=== PATIENT | male | born 1940 | race African-American/Black ===

== ENCOUNTER 2019-05-16 11:47 | Inpatient (IN) ==
[2019-05-16] MEDS ORDERED: SALINE LOCK IV FLUID XX ONE (12:35)
[2019-05-16 14:32] LABS: BASO# 0.01 X1000 (0.0-0.2); BASO% 0.1 % (0.0-0.8); EOS# 0.02 X1000 (0.0-0.7); EOS% 0.2 % (0.0-10.0); HEMATOCRIT 30.7 % (42.0-52.0); IMM GRAN# 0.03 X1000 (0.0-0.04); IMM GRAN% 0.3 % (0.0-0.5); LYMPH% 11.5 % (20.5-51.1); MCH 28.3 PG (27-31); MCHC 35.8 g/dL (33-37); MCV 78.9 FL (81-99); MONO% 2.6 % (1.7-9.3); MPV 11.6 FL (7.4-10.4); NEUT# 9.67 X1000 (1.4-6.5); NEUT% 85.3 % (42.2-75.2); PLT 159 X1000 (130-400); RBC 3.89 XMIL (4.7-6.1); RDW 15.7 % (11.5-14.5); WBC 11.33 X1000 (4.8-10.8)
[2019-05-16 14:50] LABS: LYMPHS 7 % (21-51); MONO 1 % (1-9); SEGS 92 % (42-75)
[2019-05-16 15:14] LABS: CALCIUM 7.7 mg/dL (8.8-10.2); CREATININE 1.9 mg/dL (0.7-1.2); POTASSIUM 4.5 mmol/L (3.5-5.1)
[2019-05-16] MEDS ORDERED: LASIX IV ONE (18:23)
[2019-05-16] MEDS ORDERED: ZOSYN 2.275 GM in NS 50 ML IV SCH (18:30)
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
[2019-05-16] MEDS: LOVENOX SUBQ SCH (22:30)
[2019-05-17] MEDS: ZOSYN 2.25 GM in NS 50 ML IV SCH ×4 (00:47→17:33)
[2019-05-17 05:20] LABS: BASO# 0.03 X1000 (0.0-0.2); BASO% 0.4 % (0.0-0.8); EOS# 0.08 X1000 (0.0-0.7); EOS% 1.1 % (0.0-10.0); HEMATOCRIT 27.5 % (42.0-52.0); HEMOGLOBIN 9.6 g/dL (14.0-18.0); IMM GRAN# 0.03 X1000 (0.0-0.04); IMM GRAN% 0.4 % (0.0-0.5); LYMPH# 1.24 X1000 (1.2-3.4); LYMPH% 16.3 % (20.5-51.1); MCH 27.4 PG (27-31); MCHC 34.9 g/dL (33-37); MCV 78.6 FL (81-99); MONO# 0.35 X1000 (0.11-0.59); MONO% 4.6 % (1.7-9.3); NEUT# 5.86 X1000 (1.4-6.5); NEUT% 77.2 % (42.2-75.2); PLT 138 X1000 (130-400); RDW 15.7 % (11.5-14.5); WBC 7.59 X1000 (4.8-10.8)
[2019-05-17 05:59] LABS: ALB/GLOB RATIO 0.8; ALBUMIN 1.4 g/dL (3.5-5.0); CALCIUM 7.3 mg/dL (8.8-10.2); POTASSIUM 4.4 mmol/L (3.5-5.1); TOTAL BILIRUBIN 0.26 mg/dL (0.20-1.00); TOTAL PROTEIN 3.2 g/dL (6.3-8.3)
--- NOTE | 2019-05-17 08:44 | Diag Imaging Result Doc PS360 ---
EXAM: US ABDOMEN-COMPLETE INDICATION: nausea COMPARISON: None. FINDINGS: There are multiple shadowing stones layering in the gallbladder lumen. No gallbladder wall thickening or pericholecystic fluid is identified. The common bile duct is normal in diameter. Sonographic Scott's sign was reported to be negative. The liver is grossly unremarkable. Portal venous flow is hepatopetal. Part of the pancreas is obscured. The visualized portions are unremarkable. There is aortic atherosclerotic calcification. It is unremarkable, otherwise. The spleen is unremarkable. The kidneys appear somewhat echogenic, which is a nonspecific indicator of medical renal disease. There is a 6.8 cm simple cyst at the lower pole of the right kidney. IMPRESSION: 1.Cholelithiasis. 2.Somewhat echogenic kidneys, which is a nonspecific indicator of medical renal disease. Electronically signed by Claude Naik 05/17/2019 8:41 AM
[2019-05-17] MEDS ORDERED: ALBUMIN 25% IV SCH (09:00)
[2019-05-17] MEDS: ZYLOPRIM PO SCH (10:09)
[2019-05-17] MEDS: LASIX IV SCH (10:10)
[2019-05-17] MEDS: PRILOSEC PO SCH (10:10)
[2019-05-17] MEDS: TOPROL XL PO SCH (10:10)
[2019-05-17] MEDS: PATIENT'S OWN MED PO SCH (10:12)
[2019-05-17 11:17] LABS: PROTEIN CREAT RATIO 0.2; UR CREAT RANDOM 52.9 mg/dL (14-26); UR PROT RANDOM 8.4 mg/dL
[2019-05-17] MEDS: LOVENOX SUBQ SCH (21:19)
--- NOTE | 2019-05-17 21:40 | PROGRESS NOTE ---
DATE: 05/17/2019 SUBJECTIVE: The patient is very feeble. He had a significant generalized anasarca, and protein levels were very low, and Garcia was placed. Excellent diuresis. No other complaints. PHYSICAL EXAMINATION: Vital signs: Temperature is 97.9 degrees, pulse is 63, blood pressure 126/68. Ins and outs negative so far, -3 L. HEENT Exam: Slightly pale, jaundiced. Chest: Clear. Heart: Sounds are regular. Abdomen: Belly is soft, nontender. Good bowel sounds. Genitourinary: Garcia placed. Scrotal edema improving as well as pedal edema. INVESTIGATIONS: CBC: White cell count 7.5, hematocrit 27.5, platelets 138,000. Sodium 146, potassium 4.4, BUN 22, creatinine 2.0, glucose 127, AST, ALT, alkaline phosphatase were high, proBNP 512, protein 3.2, albumin 1.4. Urine protein creatinine ratio 0.2. ASSESSMENT AND PLAN: 1. Penile edema, scrotal edema with trauma and cellulitis on IV Zosyn. White cell count is coming down. We will decrease the dose of Zosyn. 2. Generalized anasarca due to hypoproteinemia, significant reduction of protein levels, etiology to be determined. Continue on IV albumin. 3. Deep venous thrombosis prophylaxis with Lovenox. 4. Hypertension on metoprolol. Out of the bed with physical therapy. 5. Type 2 diabetes. We will hold the metformin and blood sugars running a little bit high. We will use the insulin coverage. The patient is refusing to use the insulin. 6. Gout on allopurinol. We will slowly reconcile home medicines. 7. Elevated liver function tests. We will get the ultrasound of the abdomen, and we will follow up on. Out of the bed with physical therapy. LEVEL OF DOCUMENTATION: 25 minutes. cc: Qamar Simon MD
[2019-05-18] MEDS: ZOSYN 2.25 GM in NS 50 ML IV SCH ×5 (00:51→18:43)
[2019-05-18 05:34] LABS: BASO# 0.02 X1000 (0.0-0.2); BASO% 0.4 % (0.0-0.8); EOS# 0.08 X1000 (0.0-0.7); EOS% 1.6 % (0.0-10.0); HEMATOCRIT 21.6 % (42.0-52.0); HEMOGLOBIN 7.5 g/dL (14.0-18.0); LYMPH# 0.92 X1000 (1.2-3.4); LYMPH% 18.7 % (20.5-51.1); MCH 27.3 PG (27-31); MCHC 34.7 g/dL (33-37); MCV 78.5 FL (81-99); MONO# 0.23 X1000 (0.11-0.59); MONO% 4.7 % (1.7-9.3); MPV 10.4 FL (7.4-10.4); NEUT# 3.67 X1000 (1.4-6.5); NEUT% 74.6 % (42.2-75.2); PLT 119 X1000 (130-400); RBC 2.75 XMIL (4.7-6.1); RDW 15.1 % (11.5-14.5); WBC 4.92 X1000 (4.8-10.8)
[2019-05-18 05:48] LABS: CALCIUM 7.2 mg/dL (8.8-10.2); CREATININE 1.9 mg/dL (0.7-1.2); POTASSIUM 3.6 mmol/L (3.5-5.1)
[2019-05-18 05:53] LABS: HEMOGLOBIN A1C 5.1 % (4.8-6.0)
[2019-05-18] MEDS ORDERED: NS 500 ML IV ONE (07:24)
[2019-05-18] MEDS: TOPROL XL PO SCH (08:21)
[2019-05-18] MEDS: PRILOSEC PO SCH (08:21)
[2019-05-18] MEDS: ZYLOPRIM PO SCH (08:21)
[2019-05-18] MEDS: PATIENT'S OWN MED PO SCH (08:27)
[2019-05-18] MEDS: LASIX IV SCH (12:46)
[2019-05-18] MEDS ORDERED: LASIX IV ONE (16:00)
--- NOTE | 2019-05-18 20:30 | PROGRESS NOTE ---
DATE: 05/18/2019 SUBJECTIVE: The patient has significant hypoproteinemia. Urine dipstick did not show any significant proteinuria. He has some right upper quadrant pain. This morning, the patient has significant declining of hematocrit, 21.6. Creatinine 1.9. Ultrasound findings discussed with the patient for elevated liver function tests. He has Billroth II anastomosis. He had heme- positive stools. PHYSICAL EXAMINATION: Temperature is 98 degrees, pulse 70, blood pressure is stable.HEENT: Pale looking. Feeble. Chest: Clear. Heart sounds are regular. Belly is soft, slightly tender. No signs of Scott sign. Edema is decreasing. LABORATORY AND DIAGNOSTIC DATA: White cell count 4.9, hematocrit 21.6, platelets 119,000. Sodium 146, potassium 3.6, BUN 18, creatinine 1.9, glucose 187, albumin 1.4. Elevated LFTs. Abdominal ultrasound: Positive for cholelithiasis, echogenic kidneys, 6.8 cm cyst in the lower pole of the kidney. ASSESSMENT AND PLAN: 1. Generalized anasarca due to hypoproteinemia. Etiology to be determined. No significant proteinuria noted. He was given albumin with Lasix. Significant improvement of edema. 2. Anemia. Heme-positive stools. Transfuse two units of packed RBCs. Possible GI evaluation. Consult with Dr. Bower. 3. Deep vein thrombosis prophylaxis with Lovenox. 4. Gout. On Zyloprim. 5. Type 2 diabetes. Sliding scale with insulin coverage. The patient could not take metformin due to elevated creatinine. 6. Trauma to the foreskin with phimosis. Cellulitis of the scrotum is improving. Currently on IV Zosyn. Decreased white cell count. Repeat the labs in the morning, along with the SPEP. Discussed the plan of care with the family. 7. Elevated liver function test, positive gallstones. Currently, asymptomatic on IV antibiotics. We will continue to monitor. LEVEL OF DOCUMENTATION: 25 minutes. cc: Qamar Simon MD
[2019-05-18] MEDS: HUMULIN R SUBQ SCH (21:22)
[2019-05-18] MEDS: LOVENOX SUBQ SCH (21:22)
[2019-05-19] MEDS: ZOSYN 2.25 GM in NS 50 ML IV SCH ×3 (01:06→16:37)
[2019-05-19 05:35] LABS: BASO# 0.03 X1000 (0.0-0.2); BASO% 0.4 % (0.0-0.8); EOS# 0.08 X1000 (0.0-0.7); EOS% 1.1 % (0.0-10.0); HEMATOCRIT 33.3 % (42.0-52.0); HEMOGLOBIN 11.5 g/dL (14.0-18.0); IMM GRAN# 0.02 X1000 (0.0-0.04); IMM GRAN% 0.3 % (0.0-0.5); LYMPH# 1.17 X1000 (1.2-3.4); LYMPH% 15.9 % (20.5-51.1); MCH 27.5 PG (27-31); MCHC 34.5 g/dL (33-37); MCV 79.7 FL (81-99); MONO# 0.38 X1000 (0.11-0.59); MONO% 5.2 % (1.7-9.3); MPV 10.8 FL (7.4-10.4); NEUT# 5.67 X1000 (1.4-6.5); NEUT% 77.1 % (42.2-75.2); PLT 131 X1000 (130-400); RBC 4.18 XMIL (4.7-6.1); RDW 16.3 % (11.5-14.5); WBC 7.35 X1000 (4.8-10.8)
[2019-05-19 05:44] LABS: CALCIUM 7.2 mg/dL (8.8-10.2); CREATININE 1.8 mg/dL (0.7-1.2); POTASSIUM 3.4 mmol/L (3.5-5.1)
[2019-05-19] MEDS: HUMULIN R SUBQ SCH ×4 (06:04→20:12)
[2019-05-19] MEDS ORDERED: KLOR-CON PO ONE (07:23)
[2019-05-19] MEDS: LASIX IV SCH (08:16)
[2019-05-19] MEDS: PRILOSEC PO SCH (08:16)
[2019-05-19] MEDS: ZYLOPRIM PO SCH (08:16)
[2019-05-19] MEDS: TOPROL XL PO SCH (08:16)
[2019-05-19] MEDS: PATIENT'S OWN MED PO SCH (10:27)
[2019-05-19] MEDS ORDERED: DIPRIVAN 1% ONE (11:55)
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
[2019-05-19] MEDS: LOVENOX SUBQ SCH (20:20)
--- NOTE | 2019-05-19 20:49 | PROGRESS NOTE ---
DATE: 05/19/2019 SUBJECTIVE: The patient is lot better after 2 units of packed RBCs. He has been scheduled for EGD by Dr. Junior. He had heme-positive stools. He has a generalized anasarca due to hypoproteinemia. After blood transfusion, he is getting better. He had excellent diuresis. REVIEW OF SYSTEMS: None reported. Denies of any abdominal pain. OBJECTIVE: Vital signs: Temperature is 98 degrees, pulse is 75. Vitals are stable. HEENT: No pallor. Chest: Clear. Heart: Sounds are regular. Abdomen: Belly is soft. No signs of peritonitis. Tender in the right upper quadrant. Decreased peripheral edema. Penile edema also improved as well as a hydrocele. INVESTIGATIONS: CBC: White cell count 7.3, hematocrit 33, platelets 131,000. Sodium 142, potassium 3.4, chloride 110, BUN 15, creatinine 1.8, glucose 200, SPEP, total protein is 3.3, albumin 1.48. No monoclonal band identified. ASSESSMENT AND PLAN: 1. Anemia, heme-positive stools status post 2 units of packed red blood cells. Hematocrit 33. Follow up on esophagogastroduodenoscopy. 2. Phimosis with localized infection, getting better. Discontinue Garcia. 3. Baseline creatinine 1.1, now 1.8. Ultrasound: No hydronephrosis except chronic medical renal disease. 4. Hypoproteinemia, significant causing the generalized anasarca, improving after albumin and blood transfusion. Excellent diuresis. SPEP was negative for multiple myeloma. 5. Gallstones. Currently asymptomatic. 6. Deep venous thrombosis prophylaxis with Lovenox. 7. Gout on Zyloprim. 8. Hypertension on metoprolol. 9. Acid reflux disease on Prilosec. 10. Cellulitis of the scrotum and is getting better on IV antibiotics. 11. Diabetes on sliding scale with insulin coverage. Hold on metformin due to creatinine 1.8. Plan of care is out of the bed with physical therapy, and we will repeat labs in the morning. LEVEL OF DOCUMENTATION: 25 minutes. cc: Qamar Simon MD MTDD
[2019-05-20] MEDS: ZOSYN 2.25 GM in NS 50 ML IV SCH ×3 (01:42→18:21)
[2019-05-20 05:56] LABS: BASO# 0.02 X1000 (0.0-0.2); BASO% 0.3 % (0.0-0.8); EOS# 0.06 X1000 (0.0-0.7); EOS% 0.9 % (0.0-10.0); HEMATOCRIT 31.9 % (42.0-52.0); HEMOGLOBIN 10.8 g/dL (14.0-18.0); IMM GRAN# 0.02 X1000 (0.0-0.04); IMM GRAN% 0.3 % (0.0-0.5); LYMPH# 1.29 X1000 (1.2-3.4); LYMPH% 20.3 % (20.5-51.1); MCH 27.5 PG (27-31); MCHC 33.9 g/dL (33-37); MCV 81.2 FL (81-99); MONO# 0.42 X1000 (0.11-0.59); MONO% 6.6 % (1.7-9.3); MPV 10.7 FL (7.4-10.4); NEUT# 4.54 X1000 (1.4-6.5); NEUT% 71.6 % (42.2-75.2); PLT 135 X1000 (130-400); RBC 3.93 XMIL (4.7-6.1); RDW 16.7 % (11.5-14.5); WBC 6.35 X1000 (4.8-10.8)
[2019-05-20] MEDS: HUMULIN R SUBQ SCH ×4 (06:09→20:51)
[2019-05-20 07:20] LABS: CALCIUM 7.5 mg/dL (8.8-10.2); CREATININE 1.6 mg/dL (0.7-1.2); POTASSIUM 3.8 mmol/L (3.5-5.1)
[2019-05-20] MEDS: TOPROL XL PO SCH (09:43)
[2019-05-20] MEDS: ZYLOPRIM PO SCH (09:43)
[2019-05-20] MEDS: PRILOSEC PO SCH (09:43)
[2019-05-20] MEDS: PATIENT'S OWN MED PO SCH (09:44)
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
[2019-05-20 20:46] LABS: UNBOUND IRON 19 ug/dL (112-346)
[2019-05-20] MEDS: ICAR-C PO SCH (20:50)
[2019-05-20] MEDS: LOVENOX SUBQ SCH (20:50)
[2019-05-20 20:55] LABS: TIBC 95 ug/dL; TOTAL IRON 76 ug/dL (53-167)
[2019-05-20 20:59] LABS: IRON SATURATION 80 %
[2019-05-21] MEDS: ZOSYN 2.25 GM in NS 50 ML IV SCH ×3 (01:31→17:02)
[2019-05-21] MEDS: HUMULIN R SUBQ SCH ×4 (06:53→20:54)
[2019-05-21] MEDS: PRILOSEC PO SCH (08:02)
[2019-05-21] MEDS: TOPROL XL PO SCH (08:02)
[2019-05-21] MEDS: ZYLOPRIM PO SCH (08:02)
[2019-05-21] MEDS: CENTRUM SILVER PO SCH (08:02)
[2019-05-21] MEDS: ICAR-C PO SCH (08:02)
[2019-05-21] MEDS: PATIENT'S OWN MED PO SCH (10:16)
--- NOTE | 2019-05-21 10:35 | PROGRESS NOTE ---
DATE: 05/21/2019 OBJECTIVE: Vital Signs: Stable with temperature 98.4 degrees, heart rate 73, respirations 16, blood pressure 131/70, O2 saturation on room air 100%. ASSESSMENT: The patient continues to improve. He has been ambulatory and is eating fairly well. PLAN: Continue current treatment. Consider discharge home tomorrow. cc: MD Qamar Cortes MD
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
[2019-05-21] MEDS: LOVENOX SUBQ SCH (20:54)
[2019-05-22] MEDS: ZOSYN 2.25 GM in NS 50 ML IV SCH ×3 (01:25→16:47)
[2019-05-22] MEDS: HUMULIN R SUBQ SCH ×4 (06:44→20:03)
[2019-05-22 09:24] LABS: HEPATITIS PROFILE ACUTE SEE COMMENTS
[2019-05-22 09:24] LABS: ALBUMIN 2.1 g/dL (3.5-5.0); CALCIUM 7.9 mg/dL (8.8-10.2); CREATININE 1.6 mg/dL (0.7-1.2); POTASSIUM 4.5 mmol/L (3.5-5.1); TOTAL BILIRUBIN 0.4 mg/dL (0.20-1.00); TOTAL PROTEIN 4.1 g/dL (6.3-8.3)
[2019-05-22] MEDS: PRILOSEC PO SCH (09:26)
[2019-05-22] MEDS: TOPROL XL PO SCH (09:26)
[2019-05-22] MEDS: CENTRUM SILVER PO SCH (09:26)
[2019-05-22] MEDS: ZYLOPRIM PO SCH (09:26)
[2019-05-22] MEDS: PATIENT'S OWN MED PO SCH (09:27)
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
[2019-05-22] MEDS ORDERED: ICAR-C PLUS PO SCH (11:30)
--- NOTE | 2019-05-22 21:17 | PROGRESS NOTE ---
DATE: 05/22/2019 SUBJECTIVE: The patient is better. Penile edema is getting better and Dr. Bower reports reviewed. PHYSICAL EXAMINATION: Vital signs: Temperature is 98 degrees, pulse is 82, blood pressure is stable. HEENT: Within normal limits. Neck: Supple. Chest: Clear. Heart: Sounds are regular. Abdomen: Belly is soft, nontender. Neurologic: No obvious deficits. INVESTIGATIONS: Sodium 145, potassium 4.5, chloride 112, BUN 11, creatinine 1.6, glucose 315, protein 4.1, albumin is 2.1. Hepatitis panel was negative. CBC: White cell count 6.3, hematocrit 32, platelets 135,000. Stool for occult blood positive. ASSESSMENT AND PLAN: 1. Elevated liver function tests. Continue to monitor as an outpatient. 2. Gallstones asymptomatic. 3. Pending labs as per Dr. Bower and discontinue IV antibiotics. 4. Chronic kidney disease stable. 5. Hypoproteinemia, etiology to be determined. Urine is negative for nephrosis and we will continue to monitor as an outpatient and follow up on CBC SMA 7 which is ordered and we will discharge in the morning with home health care and follow up in my office. LEVEL OF DOCUMENTATION: [25] cc: Qamar Simon MD MTDD
[2019-05-22] MEDS: LOVENOX SUBQ SCH (21:39)
[2019-05-23] MEDS: HUMULIN R SUBQ SCH (06:18)
[2019-05-23 07:40] VITALS: BP 146/67
[2019-05-23] MEDS ORDERED: PREVNAR 13 IM ONE (07:42)
[2019-05-23] MEDS: CENTRUM SILVER PO SCH (08:41)
[2019-05-23] MEDS: TOPROL XL PO SCH (08:41)
[2019-05-23] MEDS: ZYLOPRIM PO SCH (08:41)
[2019-05-23] MEDS: PRILOSEC PO SCH (08:41)
[2019-05-23] MEDS ORDERED: FLU VACCINE IM ONE (08:44)
[2019-05-23] MEDS ORDERED: NS 1,000 ML ONE (11:10)
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
[2019-05-23 22:07] LABS: TISSUE TRANSGLUTAMINASE IGA SEE COMMENTS
== END 2019-05-23 10:10 | disposition home or self-care (01) | DRG 728 ==
LOC: DIRADM → OBSVTOIN 11:47 → EDIPHOLD 12:16 → 1N 14:49
PROVIDERS: ADMIT Internal Medicine; ATTEND Internal Medicine

== ENCOUNTER 2019-10-26 09:56 | Inpatient (IN) ==
[2019-10-26] MEDS ORDERED: NEXIUM IV SCH (11:30)
[2019-10-26] MEDS ORDERED: APRESOLINE IV PRN (11:30)
[2019-10-26] MEDS ORDERED: SODIUM CHLORIDE 0.9% INJ SCH (11:30)
[2019-10-26] MEDS ORDERED: LASIX IV SCH (12:00)
[2019-10-26] MEDS: LOVENOX SUBQ SCH (12:48)
[2019-10-26] MEDS: LASIX IV SCH (12:48)
[2019-10-26 12:49] LABS: CALCIUM 7.4 mg/dL (8.8-10.2); CREATININE 1.4 mg/dL (0.7-1.2); POTASSIUM 3.9 mmol/L (3.5-5.1)
[2019-10-26 12:49] LABS: URINE SOURCE CATH
[2019-10-26] MEDS: PROTONIX IV SCH (12:49)
[2019-10-26] MEDS: SODIUM CHLORIDE 0.9% INJ SCH (12:49)
[2019-10-26 12:53] LABS: BASO# 0.01 X1000 (0.0-0.2); BASO% 0.1 % (0.0-0.8); EOS# 0.03 X1000 (0.0-0.7); EOS% 0.3 % (0.0-10.0); HEMATOCRIT 27.8 % (42.0-52.0); HEMOGLOBIN 9.4 g/dL (14.0-18.0); LYMPH# 1.13 X1000 (1.2-3.4); LYMPH% 11.7 % (20.5-51.1); MCH 27.6 PG (27-31); MCHC 33.8 g/dL (33-37); MCV 81.5 FL (81-99); MONO# 0.64 X1000 (0.11-0.59); MONO% 6.6 % (1.7-9.3); MPV 11.2 FL (7.4-10.4); NEUT# 7.87 X1000 (1.4-6.5); NEUT% 81.3 % (42.2-75.2); PLT 111 X1000 (130-400); RBC 3.41 XMIL (4.7-6.1); WBC 9.68 X1000 (4.8-10.8)
[2019-10-26 12:57] LABS: BILIRUBIN URINE NEGATIVE (NEGATIVE); BLOOD URINE NEGATIVE (NEGATIVE); COLOR YELLOW; GLUCOSE URINE 150 mg/dL (NEGATIVE); KETONE URINE NEGATIVE (NEGATIVE); LEUKOCYTES URINE NEGATIVE (NEGATIVE); NITRITE URINE NEGATIVE (NEGATIVE); PROTEIN URINE TRACE mg/dL (NEGATIVE); SP GRAVITY URINE 1.018; TURBIDITY URINE CLEAR (CLEAR); UR EPITHELIAL CELLS <10 /HPF (<10); URINE BACTERIA NEGATIVE /HPF; URINE RBC <10 /HPF (<10); URINE WBC <10 /HPF (<10); UROBILINOGEN URINE NORMAL (NORMAL)
[2019-10-26] MEDS: FLAGYL PO SCH ×2 (14:55→22:11)
[2019-10-26] MEDS: ALBUMIN 25% IV SCH (14:57)
[2019-10-26] MEDS: HUMULIN R SUBQ SCH ×2 (17:48→22:11)
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
[2019-10-27] MEDS: FLAGYL PO SCH ×5 (03:58→21:16)
[2019-10-27] MEDS: HUMULIN R SUBQ SCH ×4 (06:33→21:18)
[2019-10-27 07:18] LABS: BASO# 0.01 X1000 (0.0-0.2); BASO% 0.1 % (0.0-0.8); EOS# 0.03 X1000 (0.0-0.7); EOS% 0.4 % (0.0-10.0); HEMATOCRIT 26.7 % (42.0-52.0); HEMOGLOBIN 9.2 g/dL (14.0-18.0); IMM GRAN# 0.26 X1000 (0.0-0.04); LYMPH# 0.98 X1000 (1.2-3.4); LYMPH% 11.5 % (20.5-51.1); MCHC 34.5 g/dL (33-37); MCV 78.3 FL (81-99); MONO# 0.49 X1000 (0.11-0.59); MONO% 5.7 % (1.7-9.3); MPV 9.4 FL (7.4-10.4); NEUT# 6.78 X1000 (1.4-6.5); NEUT% 79.3 % (42.2-75.2); PLT 146 X1000 (130-400); RBC 3.41 XMIL (4.7-6.1); RDW 13.5 % (11.5-14.5); WBC 8.55 X1000 (4.8-10.8)
[2019-10-27 07:48] LABS: FREE T4 1.03 ng/dL (0.93-1.70); TSH 4.12 uIUmL (0.27-4.20)
[2019-10-27 07:52] LABS: AGAP 10; BUN 16 mg/dL (8-22); CALCIUM 7.6 mg/dL (8.8-10.2); CHLORIDE 109 mmol/L (98-107); COSMO 277; CREATININE 1.2 mg/dL (0.7-1.2); ESTIMATED GFR > 60; GLUCOSE 62 mg/dL (70-104); POTASSIUM 3.5 mmol/L (3.5-5.1); SODIUM 139 mmol/L (136-145); TCO2 20 mmol/L (25-35)
[2019-10-27] MEDS ORDERED: CALCIUM GLUCONATE 1 GM in NS 50 ML IV ONE (08:24)
[2019-10-27] MEDS ORDERED: D50W 500 ML IV SCH (08:30)
[2019-10-27] MEDS ORDERED: D50W SYRINGE IV ONE (08:39)
[2019-10-27] MEDS ORDERED: LASIX IV SCH (09:00)
[2019-10-27] MEDS: LASIX IV SCH (09:04)
[2019-10-27] MEDS: CULTURELLE PO SCH (09:05)
[2019-10-27] MEDS: ALBUMIN 25% IV SCH (11:17)
[2019-10-27] MEDS: LOVENOX SUBQ SCH (12:16)
[2019-10-27] MEDS: PROTONIX IV SCH (12:17)
[2019-10-27] MEDS: SODIUM CHLORIDE 0.9% INJ SCH (12:18)
--- NOTE | 2019-10-27 20:53 | PROGRESS NOTE ---
DATE: 10/27/2019 Patient is doing much better and he has some heating applied to body. He is feeling very cold. EXAM: Temperature is 98 degrees. Vitals are stable.HEENT: Within normal limits. Neck: Supple. Chest: Clear. Heart: Sounds are regular. Belly is soft, nontender. Decreased pedal edema. INVESTIGATIONS: CBC. White cell count 8.5, hematocrit 26, platelet 146,000. Sodium 139, potassium 3.5, BUN 16, creatinine 1.2, glucose 62 and calcium 7.6. Thyroid function tests were normal. Stool cultures are pending. ASSESSMENT AND PLAN: 1. Clostridium difficile colitis. Continue on Flagyl. 2. Dehydration improving. Creatinine came back to normal. 3. Generalized edema due to hypoproteinemia on intravenous albumin followed by Lasix. 4. Hypertension on hydralazine. 5. Type 2 diabetes, subcu sliding scale with insulin coverage. 6. DVT, GI prophylaxis and slowly reconcile home medicines and I am also going to follow up on occult blood screening. LEVEL OF DOCUMENTATION: 25 minutes. cc: Qamar Simon MD MTDD
[2019-10-28] MEDS: FLAGYL PO SCH ×4 (01:23→22:16)
[2019-10-28] MEDS: HUMULIN R SUBQ SCH ×4 (06:55→22:19)
[2019-10-28 07:37] LABS: BASO# 0.01 X1000 (0.0-0.2); BASO% 0.2 % (0.0-0.8); EOS# 0.02 X1000 (0.0-0.7); EOS% 0.3 % (0.0-10.0); HEMATOCRIT 23.9 % (42.0-52.0); HEMOGLOBIN 8.1 g/dL (14.0-18.0); IMM GRAN% 1.6 % (0.0-0.5); LYMPH# 0.84 X1000 (1.2-3.4); LYMPH% 13.7 % (20.5-51.1); MCH 26.9 PG (27-31); MCHC 33.9 g/dL (33-37); MCV 79.4 FL (81-99); MONO# 0.33 X1000 (0.11-0.59); MONO% 5.4 % (1.7-9.3); MPV 9.7 FL (7.4-10.4); NEUT# 4.84 X1000 (1.4-6.5); NEUT% 78.8 % (42.2-75.2); PLT 162 X1000 (130-400); RBC 3.01 XMIL (4.7-6.1); RDW 13.1 % (11.5-14.5); WBC 6.14 X1000 (4.8-10.8)
[2019-10-28 07:53] LABS: AGAP 10; BUN 13 mg/dL (8-22); CALCIUM 7.5 mg/dL (8.8-10.2); CHLORIDE 106 mmol/L (98-107); COSMO 278; CREATININE 1.3 mg/dL (0.7-1.2); ESTIMATED GFR > 60; GLUCOSE 105 mg/dL (70-104); POTASSIUM 3.2 mmol/L (3.5-5.1); SODIUM 139 mmol/L (136-145); TCO2 23 mmol/L (25-35)
[2019-10-28] MEDS ORDERED: KLOR-CON PO ONE (08:49)
[2019-10-28] MEDS: CULTURELLE PO SCH (09:55)
[2019-10-28] MEDS: ALBUMIN 25% IV SCH (09:56)
[2019-10-28] MEDS: SODIUM CHLORIDE 0.9% INJ SCH (13:13)
[2019-10-28] MEDS: LOVENOX SUBQ SCH (13:13)
[2019-10-28] MEDS: PROTONIX IV SCH (13:13)
--- NOTE | 2019-10-28 20:26 | PROGRESS NOTE ---
DATE: 10/28/2019 SUBJECTIVE: The patient is getting better and slightly anemic. OBJECTIVE: vital signs: Vitals are stable. HEENT: Exam within normal limits. neck: Neck is supple. pulmonary: Chest is clear. Cardiovascular: Heart sounds are regular. abdomen: Belly is soft and nontender. Good bowel sounds. INVESTIGATIONS: CBC: White cell count 6.1, hematocrit 23, platelets 162,000. SMA 7. Creatinine 1.3. ASSESSMENT AND PLAN: 1. Clostridium difficile colitis, on Flagyl. 2. Acute kidney injury, improving. 3. Generalized anasarca due to hypoproteinemia. IV albumin with Lasix. 4. Hypokalemia. Replace the potassium. 5. Hypertension, on hydralazine. 6. Probiotics as given. 7. Deep venous thrombosis and gastrointestinal prophylaxis. 8. 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 Consider transfusion and iron infusion based on the labs in the morning. Follow up on pancreatic elastase stool testing. LEVEL OF DOCUMENTATION: 25 minutes. cc: Qamar Simon MD
[2019-10-29] MEDS: FLAGYL PO SCH ×4 (02:25→21:01)
[2019-10-29] MEDS: HUMULIN R SUBQ SCH ×4 (06:52→21:18)
[2019-10-29 07:22] LABS: BASO# 0.02 X1000 (0.0-0.2); BASO% 0.4 % (0.0-0.8); EOS# 0.01 X1000 (0.0-0.7); EOS% 0.2 % (0.0-10.0); HEMATOCRIT 23.6 % (42.0-52.0); HEMOGLOBIN 7.9 g/dL (14.0-18.0); IMM GRAN# 0.15 X1000 (0.0-0.04); IMM GRAN% 2.7 % (0.0-0.5); LYMPH# 0.71 X1000 (1.2-3.4); LYMPH% 12.9 % (20.5-51.1); MCH 26.8 PG (27-31); MCHC 33.5 g/dL (33-37); MONO# 0.32 X1000 (0.11-0.59); MONO% 5.8 % (1.7-9.3); MPV 9.1 FL (7.4-10.4); NEUT# 4.31 X1000 (1.4-6.5); PLT 161 X1000 (130-400); RBC 2.95 XMIL (4.7-6.1); RDW 13.3 % (11.5-14.5); WBC 5.52 X1000 (4.8-10.8)
[2019-10-29 07:50] LABS: CREATININE 1.7 mg/dL (0.7-1.2); POTASSIUM 3.8 mmol/L (3.5-5.1)
[2019-10-29] MEDS ORDERED: CALCIUM GLUCONATE 1 GM in NS 50 ML IV ONE (09:07)
[2019-10-29] MEDS ORDERED: NS 500 ML IV ONE (09:08)
[2019-10-29] MEDS: CULTURELLE PO SCH (10:04)
[2019-10-29] MEDS ORDERED: ZOFRAN IV PRN (10:19)
[2019-10-29] MEDS ORDERED: NS 500 ML ONE (12:29)
[2019-10-29] MEDS: LOVENOX SUBQ SCH (15:44)
[2019-10-29] MEDS: PROTONIX IV SCH (15:50)
[2019-10-29] MEDS: SODIUM CHLORIDE 0.9% INJ SCH (15:50)
[2019-10-29] MEDS ORDERED: INJECTAFER IV ONE (16:35)
--- NOTE | 2019-10-29 16:51 | PROGRESS NOTE ---
DATE: 10/29/2019 SUBJECTIVE: The patient is feeling better. Garcia was out. Edema is improving and he is also very anemic. PHYSICAL EXAMINATION: Temperature is 99.2 degrees, pulse is 99, blood pressure is stable, 98% on room air. HEENT Examination: Within normal limits. Neck: Supple. Chest: Clear. Heart sounds are regular. Belly is soft, nontender. No obvious deficits. He had some footdrop on the left leg. INVESTIGATIONS: White cell count 5.5, hematocrit 23.6, platelets 161,000. Sodium 143, potassium 3.8, BUN 14, creatinine 1.7, glucose 289. Thyroid function tests were normal. Stool occult blood screening is negative. Stool C. difficile toxin is negative, WBCs few. ASSESSMENT AND PLAN: 1. Anemia due to status post Billroth anastomosis and negative gastrointestinal workup. Continue blood transfusion at 1 unit of packed red blood cells. 2. Clostridium difficile colitis, on Flagyl. 3. Chronic kidney failure. Creatinine is now stable. 4. Deep venous thrombosis and gastrointestinal prophylaxis. 5. Diabetes. We will consider a low dose of insulin. We will check the C-peptide in the morning. 6. Hypocalcemia. Replace the calcium gluconate. 7. Continue probiotics and slowly reconcile home medications. Out of the bed with physical therapy. LEVEL OF DOCUMENTATION: 25 minutes. cc: Qamar Simon MD
[2019-10-29] MEDS ORDERED: INJECTAFER 750 MG in NS 250 ML IV ONE (17:00)
[2019-10-30] MEDS: FLAGYL PO SCH ×4 (03:00→20:30)
[2019-10-30] MEDS: HUMULIN R SUBQ SCH ×4 (06:04→20:30)
[2019-10-30 07:30] LABS: BASO# 0.02 X1000 (0.0-0.2); BASO% 0.2 % (0.0-0.8); EOS# 0.05 X1000 (0.0-0.7); EOS% 0.5 % (0.0-10.0); HEMATOCRIT 29.1 % (42.0-52.0); HEMOGLOBIN 9.7 g/dL (14.0-18.0); IMM GRAN# 0.13 X1000 (0.0-0.04); IMM GRAN% 1.3 % (0.0-0.5); LYMPH# 1.03 X1000 (1.2-3.4); LYMPH% 10.6 % (20.5-51.1); MCH 26.5 PG (27-31); MCHC 33.3 g/dL (33-37); MCV 79.5 FL (81-99); MONO# 0.32 X1000 (0.11-0.59); MONO% 3.3 % (1.7-9.3); MPV 9.6 FL (7.4-10.4); NEUT# 8.21 X1000 (1.4-6.5); NEUT% 84.1 % (42.2-75.2); PLT 194 X1000 (130-400); RBC 3.66 XMIL (4.7-6.1); RDW 13.9 % (11.5-14.5); WBC 9.76 X1000 (4.8-10.8)
[2019-10-30 07:41] LABS: ALB/GLOB RATIO 1.1; ALBUMIN 2.2 g/dL (3.5-5.0); CALCIUM 8.3 mg/dL (8.8-10.2); CREATININE 1.7 mg/dL (0.7-1.2); POTASSIUM 3.7 mmol/L (3.5-5.1); TOTAL BILIRUBIN 0.42 mg/dL (0.20-1.00); TOTAL PROTEIN 4.2 g/dL (6.3-8.3)
[2019-10-30] MEDS: CULTURELLE PO SCH (08:12)
[2019-10-30] MEDS: PROTONIX IV SCH (11:06)
[2019-10-30] MEDS: TOPROL XL PO SCH (11:06)
[2019-10-30] MEDS: SODIUM CHLORIDE 0.9% INJ SCH (11:06)
[2019-10-30] MEDS: ZYLOPRIM PO SCH (11:06)
[2019-10-30] MEDS: LOVENOX SUBQ SCH (11:07)
--- NOTE | 2019-10-30 20:08 | PROGRESS NOTE ---
DATE: 10/30/2019 SUBJECTIVE: Patient is anxious to go home. He is feeling cold all the time despite 95 degrees. Edema is much improved. His diarrhea is better. PHYSICAL EXAMINATION: Vital signs: Temperature is 98 degrees. Vitals are stable. HEENT: Within normal limits. Neck: Supple. Chest: Clear. Heart: Sounds are regular. Abdomen: Belly is soft, nontender. Neurologic: No obvious deficits. INVESTIGATIONS: White cell count 9.7, hematocrit 29.1, platelet 194,000. Sodium 142, potassium 3.7, BUN 15, creatinine 1.7, glucose 240. C-peptide 0.7. Hypoproteinemia with protein levels 2.2. ASSESSMENT AND PLAN: 1. Type 2 diabetes. Will stop Januvia. We will give Lantus 10 units at bedtime. 2. Hyperlipidemia. Will restart on Pravachol. 3. Gout, on allopurinol. 4. Deep venous thrombosis ad gastrointestinal prophylaxis. 5. Clostridium difficile colitis, on Flagyl. The patient was on vancomycin before. 6. 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 7. 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 8. Reconcile home medicines. 9. Anxious to go home and waiting for pancreatic elastase stool and will follow up. LEVEL OF DOCUMENTATION: 25 minutes. Will discharge in the morning. cc: Qamar Simon MD
[2019-10-30] MEDS ORDERED: PRAVACHOL PO SCH (21:00)
[2019-10-31] MEDS: FLAGYL PO SCH ×2 (02:43→08:15)
[2019-10-31] MEDS: HUMULIN R SUBQ SCH (06:21)
[2019-10-31] MEDS ORDERED: PRILOSEC PO SCH (07:00)
[2019-10-31 07:52] VITALS: BP 145/68
[2019-10-31] MEDS: CULTURELLE PO SCH (08:14)
[2019-10-31] MEDS: TOPROL XL PO SCH (08:14)
[2019-10-31] MEDS: ZYLOPRIM PO SCH (08:15)
[2019-10-31] MEDS ORDERED: LANTUS INSULIN SUBQ SCH (09:00)
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
== END 2019-10-31 10:22 | disposition home health service (06) | DRG 372 ==
LOC: DIRADM 09:56 → EDIPHOLD 10:27 → 3N 13:48
PROVIDERS: ADMIT Internal Medicine; ATTEND Internal Medicine